=== PATIENT | male | born 1995 | race Caucasian/White ===

== ENCOUNTER 2016-05-29 13:31 | Emergency (ER) | payer SELFPAY ==
[2016-05-29 13:44] VITALS: BP 134/70; PULSE 78; RESP 16; TEMP 97.5; O2SAT 98
--- NOTE | 2016-05-29 13:52 | EDPHY ---
H & P Smoking Status: Current every day smoker Time Seen by Provider: 05/29/16 13:46 HPI/ROS: CHIEF COMPLAINT: Left shoulder pain possible dislocation HISTORY OF PRESENT ILLNESS: 20-year-old male states that 2 days ago he rolled over in bed and felt his left shoulder dislocate, reduced it himself. Complaining of continued left shoulder pain ever since. No paresthesia. No step-off. No history of orthopedic evaluation. PHYSICAL EXAM (Prior to examination, patient consented to physical exam, hands were washed and my usual and customary physical exam procedures followed) 1) GENERAL: Well-developed, well-nourished, alert and oriented. Appears to be in no acute distress. 2) HEAD: Normocephalic 3) HEENT: Pupils equal, round, reactive to light bilaterally. 4) LUNGS: Breathing comfortably. 5) MUSCULOSKELETAL: Soft compartments. Normal coloration.Normal anatomic landmarks. No step-off. No fullness. Reproducible anterior shoulder pain with range of motion. 6) SKIN: normal coloration 7) VASCULAR: pulses and cap refill present are brisk 8) NEUROLOGIC: Radial, ulnar, median nerve function intact with no deficits appreciated on exam the. Bilateral deltoid sensation equal DIFFERENTIAL DIAGNOSIS: in no particular order including but not limited to fracture, sprain, compartment syndrome Xray of the left shoulder interpreted by myself: no definitive acute osseous abnormality Procedure: Splint Upper extremity sling was applied by ER vehicle glass technician. After application of the splint I returned and re-examined the patient. The splint was adequately immobilizing the joint and distal to the splint the patient's circulation and sensation were intact. Patient shows no signs of compartment syndrome. Was given orthopedic precautions. (Edd Alcocer) Constitutional: Initial Vital Signs Temperature (C) 36.4 C 05/29/16 13:35 Heart Rate 78 05/29/16 13:35 Respiratory Rate 16 05/29/16 13:35 Blood Pressure 134/70 H 05/29/16 13:35 O2 Sat (%) 98 05/29/16 13:35 O2 Delivery Mode Room Air Allergies/Adverse Reactions: No Known Allergies Allergy (Verified 05/29/16 13:36) Home Medications: Medication Instructions Recorded NK [No Known Home Meds] 05/29/16 MDM/Departure - MDM ED Course/Re-evaluation: Discussed the patient limitations of x-ray and evaluation of acute shoulder pain. Informed that non osseous injury not ruled out. Recommend orthopedic follow-up. correctional counselor/case manager has consulted with patient as well as he has no primary care provider, no insurance. Usual customary orthopedic precautions and instructions provided. (Edd Alcocer) I did not see this patient while he was in the emergency department. However his care was discussed with the PA while the patient was in the department. I agree with treatment plan and management (Braydon Naik) - Depart Disposition: Home, Routine, Self-Care Clinical Impression: Left shoulder pain Qualifiers: Chronicity: acute Qualified Code(s): M25.512 - Pain in left shoulder Condition: Good Instructions: Shoulder Sprain (ED) Additional Instructions: Return to the ER immediately if you experience discoloration, have worsening pain, numbness, tingling, or any other symptoms that concern you. If you received x-rays in the emergency department today, be advised, that ligamentous , tendon, muscular, and other non-bony injury cannot be fully ruled out. Try to keep your affected extremity elevated above the level of your chest, and keep cold packs on the affected area, for the next 48 hours. Referrals: Sanjay Coburn MD [Medical Doctor] - 5-7 days, call for appt.
== END 2016-05-29 14:25 | disposition home or self-care (01) ==
DX: M25.512 Pain in left shoulder (principal)
CPT/HCPCS: A4565

== ENCOUNTER 2017-01-10 22:15 | Emergency (ER) | payer MEDICAID ==
[2017-01-10 22:19] VITALS: TEMP 98.2
[2017-01-10] MEDS ORDERED: IBUPROFEN 800 MG TAB PO ONE (22:41)
[2017-01-10] MEDS ORDERED: HYDROCODONE/APAP 5/325 TAB PO ONE (23:03)
--- NOTE | 2017-01-10 23:07 | EDPHY ---
H & P Stated Complaint: R hand injury HPI/ROS: Chief complaint: Right hand injury History of present illness: This is a 21-year-old male who presents to the emergency department for right hand injury. Earlier today he punched a metal box. Since then he has had pain in his hand, primarily to the medial aspect of it. It hurts to move the digits and the wrist. Slight tingling in the 4th and 5th finger. No report of open wounds. No abnormal coolness, no other paresthesias. No other injuries are reported. - Personal History Current Tetanus/Diphtheria Vaccine: Yes Current Tetanus Diphtheria and Acellular Pertussis (TDAP): Yes Tetanus Vaccine Date: <10 years - Medical/Surgical History Hx Asthma: No Hx Chronic Respiratory Disease: No Hx Diabetes: No Hx Cardiac Disease: No Hx Renal Disease: No Hx Cirrhosis: No Hx Alcoholism: No Hx HIV/AIDS: No Hx Splenectomy or Spleen Trauma: No Other PMH: right boxer fx - Social History Smoking Status: Current every day smoker - Physical Exam Exam: General: Alert, nontoxic Skin: No open wounds to the right upper extremity Musculoskeletal: Edema to the medial aspect of the hand. Tenderness to the medial aspect of the hand and wrist. Difficulty moving the 4th and 5th digits secondary to pain. He is moving the other digits well. He can move the wrist well although this causes discomfort. There is no tenderness to the rest of the hand. No tenderness to the rest of the wrist including no snuffbox tenderness. The rest the right upper extremity is nontender. Vascular: Radial pulses 2+. Capillary refill brisk in the right hand. Neurologic: Sensation intact in the right hand. Constitutional: Initial Vital Signs Temperature (C) 36.8 C 01/10/17 22:17 Heart Rate 79 01/10/17 22:17 Respiratory Rate 16 01/10/17 22:17 Blood Pressure 126/50 H 01/10/17 22:17 O2 Sat (%) 96 01/10/17 22:17 O2 Delivery Mode Room Air Allergies/Adverse Reactions: No Known Allergies Allergy (Verified 05/29/16 13:36) Home Medications: Medication Instructions Recorded NK [No Known Home Meds] 05/29/16 Medical Decision Making - Diagnostics Imaging Results: Imaging Impressions Hand X-Ray 01/10/17 22:19 Impression: Old healed fracture fifth metacarpal. No definite acute fracture. Imaging: I viewed and interpreted images myself Procedures: Procedure: Splint placement. A volar splint was applied. After application of the splint I returned and re- examined the patient. The splint was adequately immobilizing the joint and distal to the splint the patient's circulation and sensation was intact. ED Course/Re-evaluation: Patient seen under the supervision of my secondary supervising physician Dr. Musa Bailon. Patient presents to the emergency department for a right hand injury. He is complaining of some numbness in the 4th and 5th finger although on my evaluation he appears to be neurologically intact. He has good vascular supply. X-ray is negative for bony injury. However given discomfort I have placed him in a splint. Home care is discussed. He is referred to a hand doctor for recheck. Return precautions are given. Patient voiced understanding and agreement with plan. Differential Diagnosis: Included but not limited to contusion, sprain, strain, bony fracture, joint dislocation - Data Points Medications Given: Discontinued Medications Ibuprofen (Motrin) 800 mg PO EDNOW ONE Stop: 01/10/17 22:42 Last Admin: 01/10/17 22:43 Dose: 800 mg Departure - Departure Disposition: Home, Routine, Self-Care Clinical Impression: Hand contusion Qualifiers: Encounter type: initial encounter Laterality: right Qualified Code(s): S60.221A - Contusion of right hand, initial encounter Condition: Good Instructions: Contusion in Adults (ED) Additional Instructions: Follow-up with a hand doctor for recheck next week Use ibuprofen 600 mg 3 times a day for the next 2-3 days for symptom control Ice the injury, 20 minutes on, 3 times daily for the next 3 days If symptoms worsen or new symptoms develop return to the emergency room for recheck Referrals: NONE *PRIMARY CARE P,. [Primary Care Provider] - As per Instructions Mayelin Correa MD [Medical Doctor] - As per Instructions
[2017-01-10 23:38] VITALS: BP 109/61; PULSE 64; RESP 17; O2SAT 97
== END 2017-01-10 23:36 | disposition home or self-care (01) ==
DX: S60.221A Contusion of right hand, initial encounter (principal); F17.200 Nicotine dependence, unspecified, uncomplicated; W22.8XXA Striking against or struck by other objects, initial encounter